=== PATIENT | female | born 1960 | race Caucasian/White ===

== ENCOUNTER 2017-02-10 10:30 | Emergency (ER) | payer MEDICARE ==
[2017-02-10 10:52] VITALS: BP 121/77
[2017-02-10] MEDS ORDERED: cefTRIAXone 1 GM Vial IM ONE (11:52)
[2017-02-10] MEDS ORDERED: HYDROmorphone 1 MG/ML Syringe IM ONE (11:52)
--- NOTE | 2017-02-10 12:08 | EDM.PDOC ---
ED HPI Skin/Rash - General Chief Complaint: [employer] Problem Stated Complaint: VAGINAL PAIN AND SWELLING Time Seen by Provider: 02/10/17 11:48 Source: Reports: Patient History Limitations: Reports: No limitations - History of Present Illness INITIAL COMMENTS - FREE TEXT/NARRATIVE: Patient presents for evaluation and treatment of a lump to the labia. Patient reports symptoms for the last 2 days. Patient reports pain, erythema and swelling to the right labia majora. Patient reports an area has opened and he abscess is draining blood. Patient reports associated symptoms of chills and nausea .Patient denies any urinary symptoms including dysuria, change in urine odor or color. Additionally, patient denies any fevers or vomiting. Patient denies any history of MRSA. She is not a diabetic. Location, Skin: Reports: genital - Related Data Allergies Allergy/AdvReac Type Severity Reaction Status Date / Time tetracycline Allergy Rash Verified 02/10/17 10:53 tramadol Allergy Blisters Verified 02/10/17 10:53 Home Meds: Ambulatory Orders Medication Instructions Recorded Confirmed Acetaminophen/HYDROcodone [Corydon 1 tab PO Q6H PRN #12 tablet 02/10/17 325-5 MG] DULoxetine HCl [Cymbalta] 60 mg PO BEDTIME 02/10/17 02/10/17 Gabapentin [Neurontin] 600 mg PO TID 02/10/17 02/10/17 Sulfamethoxazole/Trimethoprim 1 each PO BID #20 tablet 02/10/17 [Bactrim Ds Tablet] traZODone HCl [Trazodone HCl] 200 mg PO BEDTIME 02/10/17 02/10/17 Past Medical History Musculoskeletal History: Reports: Arthritis, Fibromyalgia - Past Surgical History GI Surgical History: Reports: Appendectomy Female Surgical History: Reports: Breast implant, Hysterectomy Social & Family History - Tobacco Use Smoking Status *Q: Current Every Day Smoker Years of Tobacco use: 39 Packs/Tins Daily: 0.5 - Caffeine Use Caffeine Use: Reports: Coffee - Recreational Drug Use Recreational Drug Use: No ED ROS GENERAL - Review of Systems Review Of Systems: See Below Constitutional: Reports: chills. Denies: fever GI/Abdominal: Reports: Nausea. Denies: Vomiting : Reports: no symptoms. Denies: dysuria Skin: Reports: erythema (right labia majoria), lumps (right labia majoria with bloody drainage) ED EXAM, SKIN/RASH Exam: See Below Exam Limited By: No limitations General Appearance: alert, WD/WN, no apparent distress Respiratory/Chest: no respiratory distress Cardiovascular: normal peripheral pulses, regular rate, rhythm Neurological: alert, oriented, normal cognition Psychiatric: normal affect, normal mood Skin: Warm, Dry, Wound/incision (approximately golf ball sized abscess to the right labia majoria with associated swelling, erythema and tenderness; no active drainage) Location, Skin: genital Characteristics: erythematous Associated features: warmth, tenderness, swelling, induration ED SKIN PROCEDURES - I&D Site: right lania majoria Skin prep: chlorhexidine (hibiciens), sterile drape Local anesthesia: Lidocaine: 1% plain Local anesthetic volume: other (0.5) Area incised with: 11 blade Drainage: purulent, bloody, moderate amount Probed to break up loculations: Yes Complications: Yes (procedure was aborded after patient could no longer tolerate the discomfort) Course - Vital Signs Last Recorded V/S: Last Vital Signs Temp 35.9 C 02/10/17 10:50 Pulse 82 02/10/17 10:50 Resp 16 02/10/17 10:50 BP 121/77 02/10/17 10:50 Pulse Ox 98 02/10/17 10:50 - Orders/Labs/Meds Orders: Active Orders 24 hr Category Date Time Status CULTURE ANAEROBIC + SMEAR [RM] Stat Lab 02/10/17 13:45 Results Meds: Medications Discontinued Medications Generic Name Dose Route Start Last Admin Trade Name Tamir PRN Reason Stop Dose Admin Ceftriaxone Sodium 1 gm 02/10/17 11:52 02/10/17 12:03 Rocephin IM 02/10/17 11:53 1 gm ONETIME ONE Administration Hydromorphone HCl 1 mg 02/10/17 11:52 02/10/17 12:02 Dilaudid IM 02/10/17 11:53 1 mg ONETIME ONE Administration Hydromorphone HCl 0.5 mg 02/10/17 13:19 02/10/17 13:39 Dilaudid IM 02/10/17 13:20 0.5 mg ONETIME ONE Administration Lidocaine HCl 50 ml 02/10/17 13:01 02/10/17 14:19 Xylocaine 1% INJECT 02/10/17 13:02 50 ml ONETIME ONE Administration - Re-Assessments/Exams Free Text/Narrative Re-Assessment/Exam: 02/10/17 13:39 Discussed options of I&D in the ER vs. starting antibiotics and following up with ob for I&D later this week. Patient elected to have I&D in the ER. Total of 1.5mg IM dilaudid given prior to procedure. Patient tolerated the procedure to an extend. A moderate amount of blood and purulent material was expelled from the abscess. The procedure was aborted after several minutes due to the patient experiencing discomfort. Will send home with antibiotics and medication for pain. IM dose of rocephin given in the ER. Cultures sent. Departure - Departure Time of Disposition: 14:02 Disposition: Home, Self-Care 01 Condition: fair Clinical Impression: Abscess Prescriptions: Acetaminophen/HYDROcodone [Corydon 325-5 MG] 1 tab PO Q6H PRN #12 tablet PRN Reason: Pain Sulfamethoxazole/Trimethoprim [Bactrim Ds Tablet] 1 each PO BID #20 tablet Instructions: Abscess Referrals: PCP,None [Primary Care Provider] - Forms: ED Department Discharge Additional Instructions: You were given medication in the ER that can affect your ability to drive and operate machinery. No driving or operating machinery within 12 hours of taking prescription narcotic pain medication. Take the antibiotic as prescribed. one tablet twice a day for 10 days. Start this today. Continue with warm compress 4-5 times a day for 10-15 minutes. I recommend she wear a pad as this will likely continue to drain. Take [id number] ibuprofen as needed for pain relief. may take the Corydon as needed for severe pain. No driving or operating machinery within 12 hours of taking the Corydon. Corydon can be habit-forming, I recommend you take his to these as needed to control your pain. Followup with OB the end of this week or early next week. I recommend you dispose of the razor you were using. Please return to the ER should your symptoms change or worsen. - My Orders Last 24 Hours: My Active Orders 02/10/17 13:45 CULTURE ANAEROBIC + SMEAR [RM] Stat - Assessment/Plan Last 24 Hours: My Active Orders 02/10/17 13:45 CULTURE ANAEROBIC + SMEAR [RM] Stat
[2017-02-10] MEDS ORDERED: Lidocaine 1% 50 ML MDV INJECT ONE (13:01)
[2017-02-10] MEDS ORDERED: HYDROmorphone 0.5 MG/0.5 ML Syringe IM ONE (13:19)
== END 2017-02-10 14:38 | disposition home or self-care (01) ==
LOC: JD.ED 10:30
DX: N76.4 Abscess of vulva (principal); Z88.1 Allergy status to other antibiotic agents; Z88.6 Allergy status to analgesic agent; M19.90 Unspecified osteoarthritis, unspecified site; M79.7 Fibromyalgia; F17.200 Nicotine dependence, unspecified, uncomplicated
CPT/HCPCS: 56405; 87075; 87205; 96372; 99283; J0696; J1170; 87077; 87186; 99284-25